=== PATIENT | female | born 1945 | race Caucasian/White ===

== ENCOUNTER 2016-07-19 10:30 | Day surgery (SDC) | payer MEDICARE, OTHER ==
[2016-07-19] MEDS ORDERED: MIDAZOLAM HCL 2MG/2ML VIAL IV ONE (14:00)
[2016-07-19] MEDS ORDERED: PROPOFOL 10 MG/ML VIAL IV ONE (14:00)
[2016-07-19] MEDS ORDERED: LIDOCAINE 2% MDV (20MG/ML) 20ML VIAL IV ONE (14:00)
--- NOTE | 2016-07-24 11:22 | Operative Note ---
DATE OF SURGERY: 07/19/2016 OPERATION: COLONOSCOPY with cold forceps polypectomy x3. PREOPERATIVE DIAGNOSIS: Personal history of polyps. POSTOPERATIVE DIAGNOSIS: Polyps and sigmoid diverticulosis. PROCEDURE: After informed consent was obtained from the patient, she was placed in the left lateral decubitus position in the endoscopy suite, sedated and monitored by the department of anesthesia. Digital rectal exam was unremarkable. A well-lubricated [id number] colonoscope was inserted into the rectum and advanced to the cecum. Preparation quality was good. The cecum, ileocecal valve, appendiceal orifice, and ascending colon were unremarkable other than 2 diminutive ascending colon polyps. These were removed with a cold forceps. There was a diminutive transverse colon polyp removed with a cold forceps. The remainder of the transverse colon and descending colon were unremarkable. The sigmoid colon did reveal scattered diverticula. No polyps were seen. Forward and J-turn views of the rectum and anorectum were unrevealing. The endoscope was straightened, the rectal ampulla deflated, and the endoscope was removed. RECOMMENDATIONS: We will await the results of tissue histology but the patient will require repeat exam in 3-5 years. She should follow a high-fiber diet and resume her medicine. As always, thank you for allowing me to participate in the healthcare of your patients. CC: Dr. iNcole CROFT
== END 2016-07-19 12:00 | disposition home or self-care (01) ==
LOC: HOP 10:30
PROVIDERS: ATTEND Internal Medicine Gastroenterology
DX: Z86.010 Personal history of colon polyps (principal); D12.3 Benign neoplasm of transverse colon; K63.5 Polyp of colon; G70.00 Myasthenia gravis without (acute) exacerbation; E78.00 Pure hypercholesterolemia, unspecified; K57.30 Diverticulosis of large intestine without perforation or abscess without bleeding

== ENCOUNTER 2018-07-11 09:24 | Day surgery (SDC) | payer MEDICARE, OTHER ==
[2018-07-11] MEDS ORDERED: LIDOCAINE 2% MDV (20MG/ML) 20ML VIAL IV ONE (09:25)
[2018-07-11] MEDS ORDERED: PROPOFOL 10 MG/ML VIAL IV ONE (09:25)
--- NOTE | 2018-07-15 08:00 | Operative Note ---
SURGEON: Angelina Barone MD OPERATION: COLONOSCOPY. INDICATIONS: This is a 72-year-old female with history of hematochezia who presented for colonoscopy. Her last colonoscopy was about 3 years ago. POSTOPERATIVE DIAGNOSES: 1. Left-sided colonic segmental colitis consistent with ischemic colitis. 2. Otherwise normal colon and terminal ileal mucosa. ANESTHESIA: Sedation is per Anesthesia. Pulse oximetry was monitored throughout the procedure to maintain O2 saturation of 90% or greater. Supplemental oxygen was administered via nasal cannula. Cardiac and vital signs were monitored throughout the duration of the procedure, and they were stable. The procedure of colonoscopy and risks and alternatives of the procedure, including the risk of bleeding and perforation, among others, were explained to the patient who voiced understanding and agreed to have the procedure done. Physical examination was performed, and the patient was found stable for sedation. PROCEDURE: The patient was placed in the left lateral position. Sedation was initiated. A digital rectal exam was performed and showed some mild external hemorrhoids with no palpable rectal masses. An Olympus PCF-180AL colonoscope was then inserted into the rectum under direct visualization. It was advanced to the cecum without difficulty. The ileocecal valve and appendiceal orifice were identified and photographed. The colonic mucosa was carefully examined upon introduction of the colonoscope. There was diffuse erythema with ulcerations in the proximal sigmoid and distal descending colon consistent with ischemic colitis. There were no other lesions noted. The ileocecal valve was intubated and terminal ileal mucosa was inspected for about 10 cm and it appeared normal. The colonoscope was then withdrawn while carefully examining the colonic mucosal surfaces. No other lesions were noted. Multiple biopsies were obtained from the left colon. In the rectum, retroflexion was performed and grade 1 internal hemorrhoids were noted. The colonoscope was then withdrawn and the procedure was terminated. The patient tolerated the procedure well without any immediate complications. The patient remained with stable vital signs and was transferred to the recovery room. RECOMMENDATIONS: 1. The patient is to continue on a low-residue diet for the next couple of weeks and thereafter can be on a high-fiber diet. 2. I will see her back in the office as needed. Thank you for allowing me to participate in the care of your patient. CC: DO LANG Estrada
== END 2018-07-11 11:41 | disposition home or self-care (01) ==
LOC: HOP 09:24
PROVIDERS: ATTEND Internal Medicine Gastroenterology
DX: K92.1 Melena (principal); G70.00 Myasthenia gravis without (acute) exacerbation; R42 Dizziness and giddiness; M79.7 Fibromyalgia; R60.9 Edema, unspecified